=== PATIENT | female | born 1950 | race Caucasian/White ===

== ENCOUNTER → 2017-02-01 | Outpatient (CLI) | payer OTHER ==
[~2017-02-01] MED LIST: LEVO112T2 PO; LIDOCAINE 1%, 20ML ONE; METO25TA35 PO; OMNIPAQUE 300 MG/ML, 10ML VIAL ONE; ROPIvacaine/PF 0.2%, 20 ML ONE; TRIAMCINOLONE ACETONIDE 40 MG/ML, 1ML ONE; VENL75CA PO
== END | disposition home or self-care (01) ==
LOC: CFH 13:19
PROVIDERS: ATTEND Nurse Practitioner
DX: M19.071 Primary osteoarthritis, right ankle and foot (principal)
CPT/HCPCS: 77002; J2795; J3301; J3490; Q9967

== ENCOUNTER 2019-11-06 22:51 | Emergency (ER) | payer MEDICARE, OTHER ==
[~2019-11-06] VITALS: Ht 170.2 cm; Wt 88.9 kg
[~2019-11-06 22:51] MED LIST changes: -LIDOCAINE 1%, 20ML ONE; -OMNIPAQUE 300 MG/ML, 10ML VIAL ONE; -ROPIvacaine/PF 0.2%, 20 ML ONE; -TRIAMCINOLONE ACETONIDE 40 MG/ML, 1ML ONE
[2019-11-06 22:53] VITALS: BP 140/63
[2019-11-06] MEDS ORDERED: LIDOCAINE-MPF 1%, 2ML ONE (23:12)
[2019-11-06] MEDS ORDERED: DIPH,PERTUSS(ACELL),TET VAC/PF 0.5 ML IM-VACC ONE ×2 (23:13→23:30)
[2019-11-06] MEDS ORDERED: LIDOCAINE-MPF 1%, 2ML INFIL ONE (23:30)
[2019-11-07] MEDS ORDERED: NEOSPORIN OINT. PKT 1 PACKET ONE
--- NOTE | 2019-11-07 00:06 | NUR ---
dressing applied to R wrist
== END 2019-11-07 00:08 | disposition home or self-care (01) ==
LOC: ED 11-07 00:05
DX: S61.511A Laceration without foreign body of right wrist, initial encounter (principal); W54.0XXA Bitten by dog, initial encounter; Y93.89 Activity, other specified; Y92.009 Unspecified place in unspecified non-institutional (private) residence as the place of occurrence of the external cause; Y99.8 Other external cause status
CPT/HCPCS: 12041; 90471; 90715